=== PATIENT | female | born 1935 | race Caucasian/White ===

== ENCOUNTER 2018-05-22 07:32 | Inpatient (IN) | payer OTHER ==
[~2018-05-22] VITALS: Ht 162.6 cm; Wt 73.1 kg
[2018-05-22 07:35] VITALS: Ht 162.6 cm; Wt 73.1 kg
[2018-05-22 08:03] LABS: BASOPHIL % 0.2 % (0-2); PLATELET COUNT 190 x10^3mcL (130-400)
[2018-05-22 08:05] LABS: RED CELL DISTRIBUTION WIDTH 17.2 % (11.5-14.5)
[2018-05-22 08:21] LABS: UA SPECIFIC GRAVITY 1.015 (1.005-1.035); microscopic required? YES; urine erythrocyte 2+ (NEGATIVE)
[2018-05-22] MEDS ORDERED: AMLODIPINE BES2.5 M1 (08:23)
[2018-05-22] MEDS ORDERED: LASIX20 MG (08:23)
[2018-05-22] MEDS ORDERED: ATENOLOL25 MG (08:23)
[2018-05-22] MEDS ORDERED: LOVASTATIN20 MG (08:23)
[2018-05-22] MEDS ORDERED: LISINOPRIL2.5 MG (08:23)
[2018-05-22 08:33] LABS: ALKALINE PHOSPHATASE 45 U/L (46-116); ALT/SGPT 12 U/L (14-59); AMYLASE 41 U/L (25-115); AST/SGOT 13 U/L (15-37); BILIRUBIN TOTAL 0.24 mg/dL (0.20-1.00); CALCIUM 6.9 mg/dL (8.5-10.1); CARBON DIOXIDE 24.2 mmol/L (21-32); CHLORIDE SERUM 110 mmol/L (98-107); CREATININE SERUM 0.6 mg/dL (0.6-1.0); GLUCOSE SERUM 113 mg/dL (74-106); LIPASE 81 IU/L (73-393); POTASSIUM SERUM 4.5 mmol/L (3.5-5.1); SODIUM SERUM 139 mmol/L (136-145)
[2018-05-22 08:39] LABS: ALBUMIN 1.7 g/dL (3.4-5.0); CHOLESTEROL 87 mg/dL (<200); HDL CHOLESTEROL 22 mg/dL (40-60); TOTAL PROTEIN, SERUM 4.2 g/dL (6.4-8.2)
[2018-05-22 10:42] LABS: rbc morphology (normal/abnorm) ABNORMAL (NORMAL)
[2018-05-22 10:44] LABS: ovalocyte/elliptocyte 1+
[2018-05-22 10:46] VITALS: BP 90/69
[2018-05-22 15:24] VITALS: BP 89/47
[2018-05-22 17:20] LABS: BASOPHIL % 0.4 % (0-2); PLATELET COUNT 171 x10^3mcL (130-400)
[2018-05-22 20:00] VITALS: BP 87/61
[2018-05-22 22:50] LABS: BASOPHIL % 0.5 % (0-2); PLATELET COUNT 194 x10^3mcL (130-400)
[2018-05-22 23:01] LABS: RED CELL DISTRIBUTION WIDTH 16.3 % (11.5-14.5)
[2018-05-23 04:56] LABS: ALKALINE PHOSPHATASE 54 U/L (46-116); ALT/SGPT 15 U/L (14-59); AST/SGOT 18 U/L (15-37); BILIRUBIN TOTAL 0.44 mg/dL (0.20-1.00); CALCIUM 7.7 mg/dL (8.5-10.1); CHLORIDE SERUM 120 mmol/L (98-107); CREATININE SERUM 0.5 mg/dL (0.6-1.0); GLUCOSE SERUM 126 mg/dL (74-106); MAGNESIUM 2.4 mg/dL (1.8-2.4); PHOSPHOROUS 3.2 mg/dL (2.5-4.9); POTASSIUM SERUM 4.2 mmol/L (3.5-5.1); SODIUM SERUM 151 mmol/L (136-145)
[2018-05-23 04:57] LABS: ALBUMIN 2.2 g/dL (3.4-5.0); TOTAL PROTEIN, SERUM 5.2 g/dL (6.4-8.2)
[2018-05-23 05:08] LABS: BASOPHIL % 0.7 % (0-2); PLATELET COUNT 192 x10^3mcL (130-400)
[2018-05-23 05:11] LABS: RED CELL DISTRIBUTION WIDTH 15.9 % (11.5-14.5)
[2018-05-23 07:46] VITALS: BP 96/70
[2018-05-23 10:52] VITALS: BP 112/62
[2018-05-23 13:04] VITALS: BP 112/62
[2018-05-23 14:53] LABS: BASOPHIL % 0.4 % (0-2); PLATELET COUNT 187 x10^3mcL (130-400)
[2018-05-23 14:54] LABS: RED CELL DISTRIBUTION WIDTH 16.3 % (11.5-14.5)
[2018-05-23 17:16] VITALS: BP 107/77
[2018-05-23 20:25] VITALS: BP 117/81
[2018-05-23 23:14] LABS: BASOPHIL % 0.2 % (0-2); PLATELET COUNT 177 x10^3mcL (130-400)
[2018-05-23 23:15] LABS: RED CELL DISTRIBUTION WIDTH 16.6 % (11.5-14.5)
[2018-05-24 05:46] VITALS: BP 113/72
[2018-05-24 06:30] LABS: ALKALINE PHOSPHATASE 53 U/L (46-116); ALT/SGPT 15 U/L (14-59); AST/SGOT 15 U/L (15-37); BILIRUBIN TOTAL 0.54 mg/dL (0.20-1.00); CALCIUM 7.4 mg/dL (8.5-10.1); CARBON DIOXIDE 21.1 mmol/L (21-32); CHLORIDE SERUM 115 mmol/L (98-107); CREATININE SERUM 0.5 mg/dL (0.6-1.0); GLUCOSE SERUM 94 mg/dL (74-106); SODIUM SERUM 143 mmol/L (136-145)
[2018-05-24 06:31] LABS: ALBUMIN 2.2 g/dL (3.4-5.0); TOTAL PROTEIN, SERUM 4.9 g/dL (6.4-8.2)
[2018-05-24 07:09] LABS: BASOPHIL % 0.3 % (0-2); PLATELET COUNT 177 x10^3mcL (130-400)
[2018-05-24 07:16] LABS: RED CELL DISTRIBUTION WIDTH 16.3 % (11.5-14.5)
[2018-05-24 08:48] VITALS: BP 110/73
[2018-05-24 12:43] VITALS: BP 121/82
[2018-05-24 15:10] VITALS: BP 121/82
== END 2018-05-24 17:00 | disposition home or self-care (01) | DRG 314 ==
LOC: ED 07:32 → DU 09:24 → IC 09:24 → DU 05-23 10:20
PROVIDERS: Emergency Medicine; Internal Medicine; Internal Medicine Pulmonary Disease
PROC: 30233N1 Transfusion of Nonautologous Red Blood Cells into Peripheral Vein, Percutaneous Approach (ICD-10-PCS; 2018-05-22)
PROC: 0W3P8ZZ Control Bleeding in Gastrointestinal Tract, Via Natural or Artificial Opening Endoscopic (ICD-10-PCS; principal; 2018-05-23 07:00)
DX: I95.89 Other hypotension (principal); K55.21 Angiodysplasia of colon with hemorrhage; D62 Acute posthemorrhagic anemia; K63.3 Ulcer of intestine; E87.0 Hyperosmolality and hypernatremia; I50.32 Chronic diastolic (congestive) heart failure; K57.30 Diverticulosis of large intestine without perforation or abscess without bleeding; I11.0 Hypertensive heart disease with heart failure; K64.9 Unspecified hemorrhoids; K44.9 Diaphragmatic hernia without obstruction or gangrene; E78.5 Hyperlipidemia, unspecified; E66.9 Obesity, unspecified; Z68.25 Body mass index [BMI] 25.0-25.9, adult; Z85.3 Personal history of malignant neoplasm of breast
CPT/HCPCS: 45378; 82962; 83880; 97110-GP; C9113; J0171; J0610; J1200; J1610; J1940; J2250; J2310; J3010; J3490; J7030; J7040; J7042; J7050; J7070; P9016; Q0092

== ENCOUNTER 2018-05-25 07:13 | Inpatient (IN) | payer OTHER ==
[~2018-05-25] VITALS: Ht 162.6 cm; Wt 64.2 kg
[~2018-05-25 07:13] MED LIST: AMLODIPINE BES2.5 M1; ATENOLOL25 MG; LASIX20 MG; LISINOPRIL2.5 MG; LOVASTATIN20 MG
[2018-05-25 07:48] LABS: BASOPHIL % 0.3 % (0-2); PLATELET COUNT 200 x10^3mcL (130-400)
[2018-05-25 08:27] LABS: ALKALINE PHOSPHATASE 48 U/L (46-116); ALT/SGPT 13 U/L (14-59); AST/SGOT 17 U/L (15-37); BILIRUBIN TOTAL 0.35 mg/dL (0.20-1.00); CALCIUM 6.8 mg/dL (8.5-10.1); CARBON DIOXIDE 18.7 mmol/L (21-32); CHLORIDE SERUM 114 mmol/L (98-107); CREATININE SERUM 0.6 mg/dL (0.6-1.0); GLUCOSE SERUM 109 mg/dL (74-106); POTASSIUM SERUM 3.8 mmol/L (3.5-5.1); SODIUM SERUM 145 mmol/L (136-145)
[2018-05-25 08:28] LABS: ALBUMIN 1.6 g/dL (3.4-5.0); TOTAL PROTEIN, SERUM 3.8 g/dL (6.4-8.2)
[2018-05-25 11:38] VITALS: BP 125/90
[2018-05-25 18:25] VITALS: BP 99/74
[2018-05-25 19:25] VITALS: BP 94/66
[2018-05-25 20:43] LABS: PLATELET COUNT 222 x10^3mcL (130-400)
[2018-05-25 20:46] LABS: RED CELL DISTRIBUTION WIDTH 14.7 % (11.5-14.5)
[2018-05-25 21:01] LABS: BAND NEUTROPHIL 9 % (0-10); BASOPHIL 0 % (0-2); MONOCYTE 2 % (0-7); SEGMENTED NEUTROPHILS 84 % (37-75)
[2018-05-25 21:05] LABS: rbc morphology (normal/abnorm) ABNORMAL (NORMAL)
[2018-05-25 21:06] LABS: PLATELET MORPHOLOGY PLATELETS NORMAL; burr cell (echinocyte) 2+
[2018-05-25 23:00] VITALS: BP 75/52
[2018-05-26 03:10] VITALS: BP 82/56
[2018-05-26 07:00] LABS: ALKALINE PHOSPHATASE 39 U/L (46-116); ALT/SGPT 83 U/L (14-59); AST/SGOT 163 U/L (15-37); CALCIUM 6.2 mg/dL (8.5-10.1); CARBON DIOXIDE 13.2 mmol/L (21-32); CHLORIDE SERUM 110 mmol/L (98-107); CREATININE SERUM 1.1 mg/dL (0.6-1.0); GLUCOSE SERUM 246 mg/dL (74-106); SODIUM SERUM 142 mmol/L (136-145)
[2018-05-26 07:06] LABS: TOTAL PROTEIN, SERUM 3.9 g/dL (6.4-8.2)
[2018-05-26 07:07] LABS: POTASSIUM SERUM 2.8 mmol/L (3.5-5.1)
[2018-05-26 07:42] VITALS: BP 89/65
[2018-05-26 07:56] LABS: PLATELET COUNT 135 x10^3mcL (130-400)
[2018-05-26 07:57] LABS: RED CELL DISTRIBUTION WIDTH 14.9 % (11.5-14.5)
[2018-05-26 10:35] LABS: BAND NEUTROPHIL 12 % (0-10); BASOPHIL 0 % (0-2); MONOCYTE 8 % (0-7); PLATELET MORPHOLOGY GIANT PLATELET SEEN; SEGMENTED NEUTROPHILS 69 % (37-75); burr cell (echinocyte) 1+; rbc morphology (normal/abnorm) ABNORMAL (NORMAL)
[2018-05-26 12:18] VITALS: BP 130/92
[2018-05-26 14:56] LABS: RED CELL DISTRIBUTION WIDTH 14.2 % (11.5-14.5)
[2018-05-26 14:57] LABS: BASOPHIL % 0 % (0-2); PLATELET COUNT 109 x10^3mcL (130-400)
[2018-05-26 15:37] VITALS: BP 96/66
[2018-05-26 19:27] VITALS: BP 123/88
[2018-05-27] VITALS (12 sets, daily range): BP systolic 73–114; BP diastolic 48–69
[2018-05-27 00:57] LABS: BASOPHIL % 0.1 % (0-2)
[2018-05-27 01:21] LABS: PLATELET COUNT 91 x10^3mcL (130-400)
[2018-05-27 05:30] LABS: BASOPHIL % 0.6 % (0-2)
[2018-05-27 05:38] LABS: ALKALINE PHOSPHATASE 48 U/L (46-116); ALT/SGPT 62 U/L (14-59); AST/SGOT 62 U/L (15-37); BILIRUBIN DIRECT 0.23 mg/dL (0.0-0.2); BILIRUBIN TOTAL 0.67 mg/dL (0.20-1.00); CALCIUM 6.5 mg/dL (8.5-10.1); CARBON DIOXIDE 21.8 mmol/L (21-32); CHLORIDE SERUM 108 mmol/L (98-107); CREATININE SERUM 1.1 mg/dL (0.6-1.0); GLUCOSE SERUM 112 mg/dL (74-106); SODIUM SERUM 140 mmol/L (136-145)
[2018-05-27 05:42] LABS: ALBUMIN 1.9 g/dL (3.4-5.0); POTASSIUM SERUM 2.8 mmol/L (3.5-5.1); TOTAL PROTEIN, SERUM 4.1 g/dL (6.4-8.2)
[2018-05-27 05:51] LABS: PLATELET COUNT 107 x10^3mcL (130-400)
[2018-05-27 11:41] LABS: RED CELL DISTRIBUTION WIDTH 14.2 % (11.5-14.5)
[2018-05-27 12:18] LABS: PLATELET COUNT 112 x10^3mcL (130-400)
[2018-05-27 12:21] LABS: BAND NEUTROPHIL 16 % (0-10); METAMYELOCTE 1 % (0-2); MONOCYTE 1 % (0-7); SEGMENTED NEUTROPHILS 76 % (37-75); rbc morphology (normal/abnorm) NORMAL (NORMAL)
[2018-05-28] VITALS (18 sets, daily range): BP systolic 74–128; BP diastolic 54–97
[2018-05-28 05:15] LABS: CALCIUM 6.3 mg/dL (8.5-10.1); CARBON DIOXIDE 20.5 mmol/L (21-32); CHLORIDE SERUM 109 mmol/L (98-107); GLUCOSE SERUM 123 mg/dL (74-106); POTASSIUM SERUM 3.5 mmol/L (3.5-5.1); SODIUM SERUM 138 mmol/L (136-145)
[2018-05-28 05:38] LABS: PLATELET COUNT 137 x10^3mcL (130-400); RED CELL DISTRIBUTION WIDTH 15.7 % (11.5-14.5)
[2018-05-28 09:18] LABS: MONOCYTE 5 % (0-7); SEGMENTED NEUTROPHILS 61 % (37-75)
[2018-05-28 09:19] LABS: BAND NEUTROPHIL 30 % (0-10); BASOPHIL 0 % (0-2); rbc morphology (normal/abnorm) NORMAL (NORMAL)
[2018-05-28 09:20] LABS: PLATELET MORPHOLOGY PLATELETS NORMAL
[2018-05-29 03:07] VITALS: BP 96/66
[2018-05-29 05:14] LABS: CALCIUM 6.6 mg/dL (8.5-10.1); CARBON DIOXIDE 23.2 mmol/L (21-32); CHLORIDE SERUM 107 mmol/L (98-107); CREATININE SERUM 0.8 mg/dL (0.6-1.0); GLUCOSE SERUM 125 mg/dL (74-106); POTASSIUM SERUM 3.5 mmol/L (3.5-5.1); SODIUM SERUM 138 mmol/L (136-145)
[2018-05-29 05:20] LABS: BASOPHIL % 0 % (0-2); PLATELET COUNT 90 x10^3mcL (130-400); RED CELL DISTRIBUTION WIDTH 15.5 % (11.5-14.5)
[2018-05-29 07:44] VITALS: BP 109/68
[2018-05-29 13:48] VITALS: BP 109/65
[2018-05-29 16:31] VITALS: BP 141/76
[2018-05-29 19:45] VITALS: BP 117/67
[2018-05-30 05:00] VITALS: BP 118/69
[2018-05-30 05:28] VITALS: BP 118/69
[2018-05-30 09:13] VITALS: BP 97/60
[2018-05-30 12:08] LABS: PLATELET COUNT 108 x10^3mcL (130-400); RED CELL DISTRIBUTION WIDTH 15.9 % (11.5-14.5)
[2018-05-30 12:31] LABS: ALKALINE PHOSPHATASE 70 U/L (46-116); AST/SGOT 15 U/L (15-37); BILIRUBIN TOTAL 0.45 mg/dL (0.20-1.00); CALCIUM 7.2 mg/dL (8.5-10.1); CARBON DIOXIDE 21.8 mmol/L (21-32); CHLORIDE SERUM 108 mmol/L (98-107); CREATININE SERUM 0.8 mg/dL (0.6-1.0); GLUCOSE SERUM 103 mg/dL (74-106); POTASSIUM SERUM 3.4 mmol/L (3.5-5.1); SODIUM SERUM 138 mmol/L (136-145)
[2018-05-30 12:32] LABS: ALBUMIN 1.6 g/dL (3.4-5.0)
[2018-05-30 12:40] LABS: BAND NEUTROPHIL 9 % (0-10); BASOPHIL 0 % (0-2); METAMYELOCTE 1 % (0-2); MONOCYTE 3 % (0-7); MYELOCYTE 1 % (0-2); SEGMENTED NEUTROPHILS 84 % (37-75); rbc morphology (normal/abnorm) ABNORMAL (NORMAL)
[2018-05-30 12:41] LABS: ALT/SGPT 24 U/L (14-59)
[2018-05-30 12:42] VITALS: BP 117/62
[2018-05-30 12:43] LABS: burr cell (echinocyte) 1+; ovalocyte/elliptocyte 1+; tear drop cell (dacryocyte) 1+
[2018-05-30 16:56] VITALS: BP 97/63
[2018-05-30 20:04] VITALS: BP 116/72
[2018-05-31 05:27] VITALS: BP 98/66
[2018-05-31 06:45] LABS: PLATELET COUNT 108 x10^3mcL (130-400); RED CELL DISTRIBUTION WIDTH 15.9 % (11.5-14.5)
[2018-05-31 06:47] LABS: ALKALINE PHOSPHATASE 55 U/L (46-116); ALT/SGPT 8 U/L (14-59); AST/SGOT 15 U/L (15-37); BILIRUBIN TOTAL 0.42 mg/dL (0.20-1.00); CALCIUM 7.1 mg/dL (8.5-10.1); CARBON DIOXIDE 20.8 mmol/L (21-32); CHLORIDE SERUM 107 mmol/L (98-107); CREATININE SERUM 0.9 mg/dL (0.6-1.0); GLUCOSE SERUM 210 mg/dL (74-106); SODIUM SERUM 139 mmol/L (136-145)
[2018-05-31 06:55] LABS: ALBUMIN 1.9 g/dL (3.4-5.0); TOTAL PROTEIN, SERUM 4.1 g/dL (6.4-8.2)
[2018-05-31 06:56] LABS: POTASSIUM SERUM 2.8 mmol/L (3.5-5.1)
[2018-05-31 07:58] LABS: BAND NEUTROPHIL 1 % (0-10); MONOCYTE 5 % (0-7); SEGMENTED NEUTROPHILS 92 % (37-75); rbc morphology (normal/abnorm) NORMAL (NORMAL)
[2018-05-31 08:58] VITALS: BP 136/76
[2018-05-31 12:39] VITALS: BP 140/82
[2018-05-31 17:14] VITALS: BP 106/61
[2018-05-31 20:19] VITALS: BP 125/75
[2018-06-01 05:41] VITALS: BP 112/60
[2018-06-01 05:45] LABS: ALBUMIN 1.8 g/dL (3.4-5.0); ALKALINE PHOSPHATASE 50 U/L (46-116); ALT/SGPT 23 U/L (14-59); AST/SGOT 14 U/L (15-37); BILIRUBIN TOTAL 0.41 mg/dL (0.20-1.00); CALCIUM 7.3 mg/dL (8.5-10.1); CARBON DIOXIDE 22.3 mmol/L (21-32); CHLORIDE SERUM 110 mmol/L (98-107); CREATININE SERUM 0.8 mg/dL (0.6-1.0); GLUCOSE SERUM 156 mg/dL (74-106); MAGNESIUM 1.5 mg/dL (1.8-2.4); POTASSIUM SERUM 3.8 mmol/L (3.5-5.1); SODIUM SERUM 144 mmol/L (136-145)
[2018-06-01 06:38] LABS: PLATELET COUNT 105 x10^3mcL (130-400); RED CELL DISTRIBUTION WIDTH 16.4 % (11.5-14.5)
[2018-06-01 09:54] VITALS: BP 133/85
[2018-06-01 10:21] LABS: BAND NEUTROPHIL 2 % (0-10); MONOCYTE 6 % (0-7); SEGMENTED NEUTROPHILS 88 % (37-75); rbc morphology (normal/abnorm) NORMAL (NORMAL)
[2018-06-01 10:22] LABS: PLATELET MORPHOLOGY PLATELETS DECREASED
[2018-06-01 13:38] VITALS: BP 126/88
[2018-06-01 17:20] VITALS: BP 124/86
[2018-06-01 20:26] VITALS: BP 138/81
[2018-06-02 05:25] VITALS: BP 125/79
[2018-06-02 06:34] LABS: BASOPHIL % 0.1 % (0-2)
[2018-06-02 06:38] LABS: ALKALINE PHOSPHATASE 41 U/L (46-116); ALT/SGPT 17 U/L (14-59); AST/SGOT 14 U/L (15-37); BILIRUBIN TOTAL 0.42 mg/dL (0.20-1.00); CALCIUM 7.6 mg/dL (8.5-10.1); CHLORIDE SERUM 110 mmol/L (98-107); CREATININE SERUM 0.7 mg/dL (0.6-1.0); GLUCOSE SERUM 172 mg/dL (74-106); MAGNESIUM 2.1 mg/dL (1.8-2.4); PHOSPHOROUS 3.2 mg/dL (2.5-4.9); POTASSIUM SERUM 3.7 mmol/L (3.5-5.1); SODIUM SERUM 143 mmol/L (136-145)
[2018-06-02 06:55] LABS: ALBUMIN 2.3 g/dL (3.4-5.0); TOTAL PROTEIN, SERUM 4.3 g/dL (6.4-8.2)
[2018-06-02 06:58] LABS: PLATELET COUNT 100 x10^3mcL (130-400); RED CELL DISTRIBUTION WIDTH 15.2 % (11.5-14.5)
[2018-06-02 08:34] VITALS: BP 125/79
[2018-06-02 09:05] VITALS: BP 135/88
[2018-06-02 12:25] VITALS: BP 131/83
[2018-06-02 17:58] VITALS: BP 142/90
[2018-06-02 20:35] VITALS: BP 134/95
[2018-06-03 05:44] VITALS: BP 155/91
[2018-06-03 06:10] LABS: CARBON DIOXIDE 23.7 mmol/L (21-32); CHLORIDE SERUM 110 mmol/L (98-107); CREATININE SERUM 0.7 mg/dL (0.6-1.0); GLUCOSE SERUM 157 mg/dL (74-106); POTASSIUM SERUM 3.3 mmol/L (3.5-5.1); SODIUM SERUM 140 mmol/L (136-145)
[2018-06-03 07:03] LABS: PLATELET COUNT 125 x10^3mcL (130-400); RED CELL DISTRIBUTION WIDTH 16.5 % (11.5-14.5)
[2018-06-03 08:58] VITALS: BP 128/83
[2018-06-03 10:34] LABS: BAND NEUTROPHIL 0 % (0-10); BASOPHIL 0 % (0-2); MONOCYTE 3 % (0-7); SEGMENTED NEUTROPHILS 97 % (37-75)
[2018-06-03 10:35] LABS: rbc morphology (normal/abnorm) ABNORMAL (NORMAL)
[2018-06-03 10:36] LABS: PLATELET MORPHOLOGY PLATELETS DECREASED
[2018-06-03 12:57] VITALS: BP 126/79
[2018-06-03 17:14] VITALS: BP 125/81
[2018-06-03 18:20] LABS: CK-MB 1.8 ng/mL (0-3.6)
[2018-06-03 19:25] VITALS: BP 131/88
[2018-06-03 23:00] VITALS: BP 118/72
[2018-06-04 03:00] VITALS: BP 158/107
[2018-06-04 05:32] LABS: PLATELET COUNT 149 x10^3mcL (130-400)
[2018-06-04 05:34] LABS: BASOPHIL % 0 % (0-2)
[2018-06-04 05:45] LABS: ALKALINE PHOSPHATASE 52 U/L (46-116); ALT/SGPT 17 U/L (14-59); AST/SGOT 7 U/L (15-37); BILIRUBIN TOTAL 0.48 mg/dL (0.20-1.00); CALCIUM 7.4 mg/dL (8.5-10.1); CARBON DIOXIDE 25.6 mmol/L (21-32); CHLORIDE SERUM 109 mmol/L (98-107); CREATININE SERUM 0.8 mg/dL (0.6-1.0); GLUCOSE SERUM 129 mg/dL (74-106); SODIUM SERUM 138 mmol/L (136-145)
[2018-06-04 05:46] LABS: ALBUMIN 2.2 g/dL (3.4-5.0); TOTAL PROTEIN, SERUM 4.2 g/dL (6.4-8.2)
[2018-06-04 05:48] LABS: POTASSIUM SERUM 2.8 mmol/L (3.5-5.1)
[2018-06-04 11:57] VITALS: BP 146/80
[2018-06-04 15:43] VITALS: BP 113/59
[2018-06-04 19:39] VITALS: BP 111/71
[2018-06-04 23:56] VITALS: BP 102/54
[2018-06-05 06:00] VITALS: BP 102/63
[2018-06-05 07:02] LABS: PLATELET COUNT 143 x10^3mcL (130-400)
[2018-06-05 07:12] LABS: CALCIUM 7.4 mg/dL (8.5-10.1); CARBON DIOXIDE 24.5 mmol/L (21-32); CHLORIDE SERUM 111 mmol/L (98-107); CREATININE SERUM 0.8 mg/dL (0.6-1.0); GLUCOSE SERUM 123 mg/dL (74-106); POTASSIUM SERUM 3.7 mmol/L (3.5-5.1); SODIUM SERUM 143 mmol/L (136-145)
[2018-06-05 07:30] VITALS: BP 109/68
[2018-06-05 08:35] LABS: BAND NEUTROPHIL 3 % (0-10); BASOPHIL 0 % (0-2); MONOCYTE 6 % (0-7); SEGMENTED NEUTROPHILS 89 % (37-75)
[2018-06-05 08:38] LABS: PLATELET MORPHOLOGY GIANT PLATELET SEEN; rbc morphology (normal/abnorm) ABNORMAL (NORMAL); schistocyte (helmet cell) 1+; tear drop cell (dacryocyte) 1+
[2018-06-05 11:42] VITALS: BP 105/63
[2018-06-05 15:08] VITALS: BP 98/60
[2018-06-05 20:00] VITALS: BP 113/63
[2018-06-06] VITALS (9 sets, daily range): BP systolic 106–141; BP diastolic 65–90
[2018-06-06 05:29] LABS: PLATELET COUNT 137 x10^3mcL (130-400)
[2018-06-06 05:34] LABS: RED CELL DISTRIBUTION WIDTH 17.3 % (11.5-14.5)
[2018-06-06 05:40] LABS: CALCIUM 7.6 mg/dL (8.5-10.1); CARBON DIOXIDE 25.7 mmol/L (21-32); CHLORIDE SERUM 111 mmol/L (98-107); CREATININE SERUM 0.8 mg/dL (0.6-1.0); GLUCOSE SERUM 116 mg/dL (74-106); POTASSIUM SERUM 3.4 mmol/L (3.5-5.1); SODIUM SERUM 144 mmol/L (136-145)
[2018-06-06 06:05] LABS: BAND NEUTROPHIL 1 % (0-10); MONOCYTE 4 % (0-7); SEGMENTED NEUTROPHILS 90 % (37-75)
[2018-06-06 06:06] LABS: rbc morphology (normal/abnorm) ABNORMAL (NORMAL)
[2018-06-06 06:08] LABS: PLATELET MORPHOLOGY LARGE PLATELET SEEN; ovalocyte/elliptocyte 1+
[2018-06-07 03:10] VITALS: BP 115/74
[2018-06-07 05:27] LABS: BASOPHIL % 0.2 % (0-2); PLATELET COUNT 139 x10^3mcL (130-400)
[2018-06-07 05:30] LABS: RED CELL DISTRIBUTION WIDTH 16.6 % (11.5-14.5)
[2018-06-07 05:44] LABS: ALKALINE PHOSPHATASE 51 U/L (46-116); ALT/SGPT 15 U/L (14-59); AST/SGOT 13 U/L (15-37); BILIRUBIN DIRECT 0.16 mg/dL (0.0-0.2); BILIRUBIN TOTAL 0.54 mg/dL (0.20-1.00); CALCIUM 7.5 mg/dL (8.5-10.1); CARBON DIOXIDE 28.9 mmol/L (21-32); CHLORIDE SERUM 111 mmol/L (98-107); CREATININE SERUM 0.7 mg/dL (0.6-1.0); GLUCOSE SERUM 123 mg/dL (74-106); POTASSIUM SERUM 3.3 mmol/L (3.5-5.1); SODIUM SERUM 145 mmol/L (136-145)
[2018-06-07 05:45] LABS: ALBUMIN 1.8 g/dL (3.4-5.0); TOTAL PROTEIN, SERUM 4.4 g/dL (6.4-8.2)
[2018-06-07 07:09] VITALS: BP 114/62
[2018-06-07 11:25] VITALS: BP 108/64
[2018-06-07 15:12] VITALS: BP 116/76
[2018-06-07 20:09] VITALS: BP 113/70
[2018-06-07 23:20] VITALS: BP 101/67
[2018-06-08 05:20] LABS: PLATELET COUNT 157 x10^3mcL (130-400)
[2018-06-08 05:36] LABS: RED CELL DISTRIBUTION WIDTH 17.1 % (11.5-14.5)
[2018-06-08 05:39] LABS: CALCIUM 7.9 mg/dL (8.5-10.1); CARBON DIOXIDE 30.8 mmol/L (21-32); CHLORIDE SERUM 111 mmol/L (98-107); CREATININE SERUM 0.8 mg/dL (0.6-1.0); GLUCOSE SERUM 143 mg/dL (74-106); POTASSIUM SERUM 3.4 mmol/L (3.5-5.1); SODIUM SERUM 144 mmol/L (136-145)
[2018-06-08 05:58] LABS: BAND NEUTROPHIL 1 % (0-10); MONOCYTE 4 % (0-7); SEGMENTED NEUTROPHILS 90 % (37-75)
[2018-06-08 05:59] LABS: PLATELET MORPHOLOGY PLATELETS NORMAL; rbc morphology (normal/abnorm) ABNORMAL (NORMAL)
[2018-06-08 07:22] VITALS: BP 101/66
[2018-06-08 12:04] VITALS: BP 100/59
[2018-06-08 16:44] VITALS: BP 140/76
[2018-06-08 21:08] VITALS: BP 110/56
[2018-06-08 21:15] VITALS: BP 126/97
[2018-06-09 05:34] VITALS: BP 100/58
[2018-06-09 06:50] LABS: PLATELET COUNT 143 x10^3mcL (130-400)
[2018-06-09 06:56] LABS: RED CELL DISTRIBUTION WIDTH 17.8 % (11.5-14.5)
[2018-06-09 07:01] LABS: CALCIUM 7.6 mg/dL (8.5-10.1); CARBON DIOXIDE 25.9 mmol/L (21-32); CHLORIDE SERUM 107 mmol/L (98-107); CREATININE SERUM 0.9 mg/dL (0.6-1.0); GLUCOSE SERUM 135 mg/dL (74-106); POTASSIUM SERUM 3.2 mmol/L (3.5-5.1); SODIUM SERUM 142 mmol/L (136-145)
[2018-06-09 08:51] LABS: BAND NEUTROPHIL 0 % (0-10); BASOPHIL 0 % (0-2); MONOCYTE 1 % (0-7); SEGMENTED NEUTROPHILS 97 % (37-75)
[2018-06-09 08:53] LABS: PLATELET MORPHOLOGY PLATELETS DECREASED; rbc morphology (normal/abnorm) ABNORMAL (NORMAL); schistocyte (helmet cell) 1+
[2018-06-09 09:00] VITALS: BP 106/54
[2018-06-09 12:45] VITALS: BP 97/67
[2018-06-09 17:25] VITALS: BP 101/57
[2018-06-09 18:51] VITALS: BP 114/66
[2018-06-09 20:25] VITALS: BP 112/62
[2018-06-10 04:54] LABS: PLATELET COUNT 141 x10^3mcL (130-400)
[2018-06-10 05:03] LABS: CALCIUM 7.6 mg/dL (8.5-10.1); CARBON DIOXIDE 27.1 mmol/L (21-32); CHLORIDE SERUM 108 mmol/L (98-107); CREATININE SERUM 0.9 mg/dL (0.6-1.0); GLUCOSE SERUM 123 mg/dL (74-106); POTASSIUM SERUM 3.7 mmol/L (3.5-5.1); SODIUM SERUM 141 mmol/L (136-145)
[2018-06-10 05:12] LABS: BASOPHIL % 0 % (0-2); RED CELL DISTRIBUTION WIDTH 17.8 % (11.5-14.5)
[2018-06-10 05:16] VITALS: BP 110/60
[2018-06-10 09:05] VITALS: BP 107/70
[2018-06-10 12:29] VITALS: BP 114/67
[2018-06-10 16:56] VITALS: BP 108/75
[2018-06-10 21:00] VITALS: BP 110/73
[2018-06-11] VITALS (7 sets, daily range): BP systolic 61–100; BP diastolic 40–60
[2018-06-11 03:42] LABS: BASOPHIL % 0.5 % (0-2); PLATELET COUNT 133 x10^3mcL (130-400)
[2018-06-11 03:44] LABS: RED CELL DISTRIBUTION WIDTH 17.5 % (11.5-14.5)
[2018-06-11 04:01] LABS: CALCIUM 7.3 mg/dL (8.5-10.1); CARBON DIOXIDE 25.6 mmol/L (21-32); CHLORIDE SERUM 109 mmol/L (98-107); CREATININE SERUM 1.1 mg/dL (0.6-1.0); GLUCOSE SERUM 136 mg/dL (74-106); MAGNESIUM 1.9 mg/dL (1.8-2.4); PHOSPHOROUS 4.3 mg/dL (2.5-4.9); POTASSIUM SERUM 4.6 mmol/L (3.5-5.1); SODIUM SERUM 140 mmol/L (136-145)
[2018-06-11 12:26] LABS: BASOPHIL % 0 % (0-2); PLATELET COUNT 83 x10^3mcL (130-400); RED CELL DISTRIBUTION WIDTH 16.6 % (11.5-14.5)
[2018-06-11 12:49] LABS: rbc morphology (normal/abnorm) ABNORMAL (NORMAL)
[2018-06-11 20:31] LABS: BASOPHIL % 0.4 % (0-2)
[2018-06-11 20:32] LABS: PLATELET COUNT 77 x10^3mcL (130-400); RED CELL DISTRIBUTION WIDTH 15.5 % (11.5-14.5)
[2018-06-12 03:18] VITALS: BP 112/69
[2018-06-12 05:47] LABS: ALKALINE PHOSPHATASE 33 U/L (46-116); ALT/SGPT 15 U/L (14-59); AST/SGOT 18 U/L (15-37); BILIRUBIN TOTAL 0.85 mg/dL (0.20-1.00); CALCIUM 7.6 mg/dL (8.5-10.1); CARBON DIOXIDE 26.4 mmol/L (21-32); CHLORIDE SERUM 110 mmol/L (98-107); GLUCOSE SERUM 76 mg/dL (74-106); POTASSIUM SERUM 3.7 mmol/L (3.5-5.1); SODIUM SERUM 144 mmol/L (136-145)
[2018-06-12 05:58] LABS: BASOPHIL % 0 % (0-2); PLATELET COUNT 77 x10^3mcL (130-400); RED CELL DISTRIBUTION WIDTH 15.7 % (11.5-14.5)
[2018-06-12 08:00] VITALS: BP 110/67
[2018-06-12 12:14] VITALS: BP 105/60
[2018-06-12 15:50] VITALS: BP 103/67
[2018-06-12 16:27] LABS: BASOPHIL % 0.4 % (0-2)
[2018-06-12 16:30] LABS: PLATELET COUNT 79 x10^3mcL (130-400); RED CELL DISTRIBUTION WIDTH 15.8 % (11.5-14.5)
[2018-06-12 19:15] VITALS: BP 105/68
[2018-06-12 23:18] VITALS: BP 106/68
[2018-06-13 03:22] VITALS: BP 100/67
[2018-06-13 04:58] LABS: BASOPHIL % 0.2 % (0-2)
[2018-06-13 05:00] LABS: CALCIUM 7.8 mg/dL (8.5-10.1); CARBON DIOXIDE 26.4 mmol/L (21-32); CHLORIDE SERUM 111 mmol/L (98-107); GLUCOSE SERUM 78 mg/dL (74-106); POTASSIUM SERUM 3.5 mmol/L (3.5-5.1); SODIUM SERUM 149 mmol/L (136-145)
[2018-06-13 05:04] LABS: PLATELET COUNT 80 x10^3mcL (130-400); RED CELL DISTRIBUTION WIDTH 16.2 % (11.5-14.5)
[2018-06-13 07:40] VITALS: BP 119/73
[2018-06-13 11:23] VITALS: BP 111/72
[2018-06-13 16:20] VITALS: BP 122/75
[2018-06-13 20:00] VITALS: BP 106/66
[2018-06-14] VITALS (7 sets, daily range): BP systolic 99–117; BP diastolic 58–72
[2018-06-14 06:34] LABS: BASOPHIL % 0.2 % (0-2)
[2018-06-14 06:41] LABS: PLATELET COUNT 96 x10^3mcL (130-400); RED CELL DISTRIBUTION WIDTH 16.2 % (11.5-14.5)
[2018-06-14 06:46] LABS: ALKALINE PHOSPHATASE 47 U/L (46-116); ALT/SGPT 18 U/L (14-59); AST/SGOT 12 U/L (15-37); CARBON DIOXIDE 27.3 mmol/L (21-32); CHLORIDE SERUM 112 mmol/L (98-107); GLUCOSE SERUM 111 mg/dL (74-106); POTASSIUM SERUM 3.5 mmol/L (3.5-5.1); SODIUM SERUM 150 mmol/L (136-145)
[2018-06-14 06:51] LABS: ALBUMIN 2.9 g/dL (3.4-5.0); TOTAL PROTEIN, SERUM 5.9 g/dL (6.4-8.2)
[2018-06-15] VITALS (7 sets, daily range): BP systolic 97–110; BP diastolic 70–83
[2018-06-15 05:41] LABS: BASOPHIL % 0.2 % (0-2); PLATELET COUNT 131 x10^3mcL (130-400)
[2018-06-15 05:44] LABS: ALKALINE PHOSPHATASE 72 U/L (46-116); ALT/SGPT 18 U/L (14-59); AST/SGOT 16 U/L (15-37); BILIRUBIN TOTAL 0.5 mg/dL (0.20-1.00); CALCIUM 7.9 mg/dL (8.5-10.1); CARBON DIOXIDE 28.1 mmol/L (21-32); CHLORIDE SERUM 108 mmol/L (98-107); CREATININE SERUM 1.1 mg/dL (0.6-1.0); GLUCOSE SERUM 132 mg/dL (74-106); MAGNESIUM 2.1 mg/dL (1.8-2.4); POTASSIUM SERUM 3.8 mmol/L (3.5-5.1); RED CELL DISTRIBUTION WIDTH 16.9 % (11.5-14.5); SODIUM SERUM 142 mmol/L (136-145); TOTAL PROTEIN, SERUM 6.5 g/dL (6.4-8.2)
[2018-06-16 04:05] VITALS: BP 95/70
[2018-06-16 05:57] LABS: ALKALINE PHOSPHATASE 54 U/L (46-116); ALT/SGPT 15 U/L (14-59); AST/SGOT 12 U/L (15-37); BILIRUBIN TOTAL 0.5 mg/dL (0.20-1.00); CARBON DIOXIDE 23.4 mmol/L (21-32); CHLORIDE SERUM 111 mmol/L (98-107); GLUCOSE SERUM 123 mg/dL (74-106); MAGNESIUM 2.2 mg/dL (1.8-2.4); PHOSPHOROUS 2.5 mg/dL (2.5-4.9); POTASSIUM SERUM 4.8 mmol/L (3.5-5.1); SODIUM SERUM 144 mmol/L (136-145)
[2018-06-16 05:59] LABS: ALBUMIN 2.7 g/dL (3.4-5.0); TOTAL PROTEIN, SERUM 6.1 g/dL (6.4-8.2)
[2018-06-16 06:15] LABS: BASOPHIL % 0.2 % (0-2); PLATELET COUNT 179 x10^3mcL (130-400)
[2018-06-16 06:23] LABS: RED CELL DISTRIBUTION WIDTH 16.5 % (11.5-14.5)
[2018-06-16 08:20] VITALS: BP 91/60
[2018-06-16 11:15] VITALS: BP 86/57
[2018-06-16 12:22] LABS: PLATELET COUNT 198 x10^3mcL (130-400)
[2018-06-16 12:39] LABS: RED CELL DISTRIBUTION WIDTH 17.1 % (11.5-14.5)
[2018-06-16 12:54] LABS: BAND NEUTROPHIL 0 % (0-10); BASOPHIL 0 % (0-2); MONOCYTE 7 % (0-7); SEGMENTED NEUTROPHILS 91 % (37-75)
[2018-06-16 12:56] LABS: PLATELET MORPHOLOGY PLATELETS DECREASED; rbc morphology (normal/abnorm) ABNORMAL (NORMAL)
[2018-06-16 15:20] VITALS: BP 85/62
[2018-06-16 16:21] LABS: BASOPHIL % 0.4 % (0-2); PLATELET COUNT 179 x10^3mcL (130-400)
[2018-06-16 16:25] LABS: RED CELL DISTRIBUTION WIDTH 18.4 % (11.5-14.5)
[2018-06-16 19:20] VITALS: BP 87/64
[2018-06-16 23:10] VITALS: BP 92/66
[2018-06-17 03:02] VITALS: BP 99/69
[2018-06-17 05:50] LABS: CALCIUM 7.9 mg/dL (8.5-10.1); CARBON DIOXIDE 22.4 mmol/L (21-32); CHLORIDE SERUM 113 mmol/L (98-107); CREATININE SERUM 1.4 mg/dL (0.6-1.0); GLUCOSE SERUM 139 mg/dL (74-106); POTASSIUM SERUM 4.3 mmol/L (3.5-5.1); SODIUM SERUM 147 mmol/L (136-145)
[2018-06-17 05:58] LABS: BASOPHIL % 0.4 % (0-2); PLATELET COUNT 204 x10^3mcL (130-400); RED CELL DISTRIBUTION WIDTH 17.6 % (11.5-14.5)
[2018-06-17 07:32] VITALS: Ht 162.6 cm; Wt 64.2 kg
[2018-06-17 08:00] VITALS: BP 108/73
[2018-06-17 09:00] VITALS: BP 98/63
[2018-06-17 10:00] VITALS: BP 104/65
[2018-06-17 18:47] VITALS: BP 89/60
[2018-06-17 20:23] VITALS: BP 91/62
[2018-06-18 05:47] VITALS: BP 95/64
[2018-06-18 07:11] LABS: ALKALINE PHOSPHATASE 42 U/L (46-116); ALT/SGPT 13 U/L (14-59); AST/SGOT 17 U/L (15-37); BILIRUBIN TOTAL 0.3 mg/dL (0.20-1.00); CALCIUM 8.1 mg/dL (8.5-10.1); CARBON DIOXIDE 25.3 mmol/L (21-32); CHLORIDE SERUM 114 mmol/L (98-107); GLUCOSE SERUM 128 mg/dL (74-106); MAGNESIUM 2.3 mg/dL (1.8-2.4); PHOSPHOROUS 3.2 mg/dL (2.5-4.9); POTASSIUM SERUM 3.8 mmol/L (3.5-5.1); SODIUM SERUM 148 mmol/L (136-145)
[2018-06-18 07:12] LABS: ALBUMIN 2.4 g/dL (3.4-5.0); TOTAL PROTEIN, SERUM 6.1 g/dL (6.4-8.2)
[2018-06-18 07:13] LABS: PLATELET COUNT 248 x10^3mcL (130-400)
[2018-06-18 07:14] LABS: BASOPHIL % 0 % (0-2); RED CELL DISTRIBUTION WIDTH 18.1 % (11.5-14.5)
[2018-06-18 09:27] VITALS: BP 94/53
[2018-06-18 13:50] VITALS: BP 107/68
[2018-06-18 18:00] VITALS: BP 97/62
[2018-06-18 20:39] VITALS: BP 112/73
[2018-06-19] VITALS (7 sets, daily range): BP systolic 80–100; BP diastolic 45–63
[2018-06-19 06:24] LABS: ALKALINE PHOSPHATASE 52 U/L (46-116); ALT/SGPT 16 U/L (14-59); AST/SGOT 18 U/L (15-37); BILIRUBIN TOTAL 0.37 mg/dL (0.20-1.00); CARBON DIOXIDE 19.1 mmol/L (21-32); CHLORIDE SERUM 116 mmol/L (98-107); CREATININE SERUM 0.9 mg/dL (0.6-1.0); GLUCOSE SERUM 145 mg/dL (74-106); MAGNESIUM 2.1 mg/dL (1.8-2.4); PHOSPHOROUS 2.7 mg/dL (2.5-4.9); POTASSIUM SERUM 3.9 mmol/L (3.5-5.1); SODIUM SERUM 148 mmol/L (136-145)
[2018-06-19 06:44] LABS: ALBUMIN 2.3 g/dL (3.4-5.0); TOTAL PROTEIN, SERUM 5.9 g/dL (6.4-8.2)
[2018-06-19 06:54] LABS: BASOPHIL % 0.1 % (0-2); PLATELET COUNT 319 x10^3mcL (130-400)
[2018-06-20 05:54] VITALS: BP 97/62
[2018-06-20 08:17] VITALS: BP 105/62
[2018-06-20 12:10] VITALS: BP 96/59
[2018-06-20 16:36] VITALS: BP 104/58
[2018-06-20 20:13] VITALS: BP 100/62
[2018-06-21 05:22] VITALS: BP 100/52
[2018-06-21 09:00] VITALS: BP 86/56
[2018-06-21 13:00] VITALS: BP 85/48
[2018-06-21 17:09] VITALS: BP 94/53
[2018-06-21 17:21] VITALS: BP 94/53
[2018-06-21 20:23] VITALS: BP 94/49
[2018-06-22 04:59] VITALS: BP 92/61
[2018-06-22 06:21] LABS: ALKALINE PHOSPHATASE 74 U/L (46-116); ALT/SGPT 34 U/L (14-59); AST/SGOT 41 U/L (15-37); BILIRUBIN TOTAL 0.2 mg/dL (0.20-1.00); CALCIUM 8.2 mg/dL (8.5-10.1); CARBON DIOXIDE 20.3 mmol/L (21-32); CHLORIDE SERUM 119 mmol/L (98-107); CREATININE SERUM 0.7 mg/dL (0.6-1.0); GLUCOSE SERUM 125 mg/dL (74-106); POTASSIUM SERUM 4.4 mmol/L (3.5-5.1); SODIUM SERUM 149 mmol/L (136-145)
[2018-06-22 06:30] LABS: ALBUMIN 2.1 g/dL (3.4-5.0)
[2018-06-22 08:45] VITALS: BP 94/55
[2018-06-22 09:48] LABS: MAGNESIUM 2.7 mg/dL (1.8-2.4); PHOSPHOROUS 3.4 mg/dL (2.5-4.9)
[2018-06-22 10:55] VITALS: BP 94/55
== END 2018-06-22 11:42 | disposition hospice, home (50) | DRG 329 ==
LOC: ED 07:13 → DU 09:06 → IC 09:06 → DU 05-29 09:30 → IC 06-03 19:15 → DU 06-08 11:31 → IC 06-11 02:40 → DU 06-17 18:40
PROVIDERS: Anesthesiology; Emergency Medicine; Internal Medicine; Internal Medicine Pulmonary Disease
PROC: 05HM33Z Insertion of Infusion Device into Right Internal Jugular Vein, Percutaneous Approach (ICD-10-PCS; principal; 2018-05-25)
PROC: 30233K1 Transfusion of Nonautologous Frozen Plasma into Peripheral Vein, Percutaneous Approach (ICD-10-PCS; 2018-05-25)
PROC: 30233N1 Transfusion of Nonautologous Red Blood Cells into Peripheral Vein, Percutaneous Approach (ICD-10-PCS; 2018-05-25)
PROC: 30233R1 Transfusion of Nonautologous Platelets into Peripheral Vein, Percutaneous Approach (ICD-10-PCS; 2018-05-25)
PROC: 0W3P8ZZ Control Bleeding in Gastrointestinal Tract, Via Natural or Artificial Opening Endoscopic (ICD-10-PCS; 2018-05-26 12:30)
PROC: 0UB10ZZ Excision of Left Ovary, Open Approach (ICD-10-PCS; 2018-05-27)
PROC: 0DTF0ZZ Resection of Right Large Intestine, Open Approach (ICD-10-PCS; 2018-05-27)
PROC: 0D1B0Z4 Bypass Ileum to Cutaneous, Open Approach (ICD-10-PCS; 2018-05-27)
PROC: 06H03DZ Insertion of Intraluminal Device into Inferior Vena Cava, Percutaneous Approach (ICD-10-PCS; 2018-06-04)
PROC: 0W3P8ZZ Control Bleeding in Gastrointestinal Tract, Via Natural or Artificial Opening Endoscopic (ICD-10-PCS; 2018-06-16)
DX: K55.21 Angiodysplasia of colon with hemorrhage (principal); K63.1 Perforation of intestine (nontraumatic); J69.0 Pneumonitis due to inhalation of food and vomit; R57.8 Other shock; K65.9 Peritonitis, unspecified; E43 Unspecified severe protein-calorie malnutrition; J96.01 Acute respiratory failure with hypoxia; I26.99 Other pulmonary embolism without acute cor pulmonale; G93.41 Metabolic encephalopathy; J98.11 Atelectasis; I82.431 Acute embolism and thrombosis of right popliteal vein; I82.412 Acute embolism and thrombosis of left femoral vein; D62 Acute posthemorrhagic anemia; I48.0 Paroxysmal atrial fibrillation; I71.4 Abdominal aortic aneurysm, without rupture; E87.6 Hypokalemia; Z66 Do not resuscitate; Z51.5 Encounter for palliative care; N83.202 Unspecified ovarian cyst, left side; I10 Essential (primary) hypertension; E78.5 Hyperlipidemia, unspecified; E83.39 Other disorders of phosphorus metabolism; I35.0 Nonrheumatic aortic (valve) stenosis; Z68.29 Body mass index [BMI] 29.0-29.9, adult
CPT/HCPCS: CLIVC; 36600; 37191; 43235; 45378; 82962; 85378; 92610-GN; 97110-GP; 97164; 97530-GP; A4628; C1753; C1769; C1880; C1887; C1894; C9113; J0132; J0171; J0282; J0330; J0610; J1160; J1170; J1200; J1610; J1644; J1650; J1720; J1885; J1940; J1956; J2001; J2250; J2270; J2310; J2370; J2405; J2543; J2550; J2597; J2704; J3010; J3370; J3430; J3475; J3480; J3490; J7030; J7040; J7042; J7050; J7120; J7131; J7620; J7626; P9016; P9035; P9045; P9047; P9059; Q0092; Q9967